=== PATIENT | female | born 1945 | race African-American/Black ===

== ENCOUNTER 2016-11-20 07:14 | Day surgery (SDC) | payer OTHER, MEDICAID ==
[2016-11-20] MEDS ORDERED: NS 500 ML IV 500 ML IV ONE (07:56)
[2016-11-20] MEDS ORDERED: KENALOG INJ 40 MG ONE (08:13)
[2016-11-20] MEDS ORDERED: TETRACAINE HCL AFFEYE ONE (10:19)
[2016-11-20] MEDS ORDERED: ALPHAGAN-P OPHTH 1 DOSE AFFEYE ONE (10:19)
[2016-11-20] MEDS ORDERED: BETADINE OPHTH SOLN 5% EACHEYE ONE (10:19)
[2016-11-20] MEDS ORDERED: VIGAMOX 0.5% OPHTH 1 DOSE AFFEYE ONE (10:32)
[2016-11-20 12:53] VITALS: BP 144/73
== END 2016-11-20 10:58 | disposition home or self-care (01) | DRG 125 ==
LOC: SURG1 07:14
PROVIDERS: ATTEND Ophthalmology
PROC: 08BSXZX Excision of Right Conjunctiva, External Approach, Diagnostic (ICD-10-PCS; principal; 2016-11-20 10:30)
PROC: 08U007Z Supplement of Right Eye with Autologous Tissue Substitute, Open Approach (ICD-10-PCS; principal; 2016-11-20 10:30)
DX: H11.001 Unspecified pterygium of right eye (principal)
CPT/HCPCS: 99100; A4217; J3301

== ENCOUNTER 2017-02-12 09:01 | Day surgery (SDC) | payer OTHER, MEDICAID ==
[2017-02-12] MEDS ORDERED: TETRACAINE 0.5% OPHTH 1 DOSE AFFEYE ONE ×4 (09:10→13:09)
[2017-02-12] MEDS ORDERED: VIGAMOX 0.5% OPHTH 1 DOSE AFFEYE ONE ×5 (09:11→13:19)
[2017-02-12] MEDS ORDERED: NS 500 ML IV 500 ML IV ONE (09:21)
[2017-02-12] MEDS ORDERED: PROLENSA OPHTH 1 DOSE AFFEYE ONE (09:22)
[2017-02-12] MEDS ORDERED: ALPHAGAN-P OPHTH 1 DOSE AFFEYE ONE (09:24)
[2017-02-12] MEDS ORDERED: MYDRIACIL OPHTH 1 DOSE AFFEYE ONE ×4 (09:25→09:35)
[2017-02-12] MEDS ORDERED: CYCLOGYL 1% OPHTH 1 DOSE OP ONE ×4 (09:25→09:35)
[2017-02-12] MEDS ORDERED: AK-DILATE 2.5% OPHTH 1 DOSE OP ONE ×4 (09:25→09:35)
[2017-02-12] MEDS ORDERED: BETADINE OPHTH SOLN 5% EACHEYE ONE (12:58)
[2017-02-12] MEDS ORDERED: BSS OPHTH (PLAIN) 500 ML with VANCOMYCIN HCL 500 MG VIAL 25 MG, ADRENALINE CHL INJ 1 MG IR ONE ×6 (13:00)
[2017-02-12] MEDS ORDERED: ADRENALINE CHL INJ IJ ONE ×2 (13:00→13:09)
[2017-02-12] MEDS ORDERED: DUOVISC IO ONE ×2 (13:00→13:09)
[2017-02-12] MEDS ORDERED: XYLOCAINE-MPF 1% IJ ONE ×2 (13:00→13:09)
[2017-02-12 13:31] VITALS: BP 119/69
== END 2017-02-12 13:31 | disposition home or self-care (01) ==
LOC: SURG1 09:01
PROVIDERS: ATTEND Ophthalmology
PROC: 08DK3ZZ Extraction of Left Lens, Percutaneous Approach (ICD-10-PCS; principal; 2017-02-12 16:15)
PROC: 08RK3JZ Replacement of Left Lens with Synthetic Substitute, Percutaneous Approach (ICD-10-PCS; principal; 2017-02-12 16:15)
DX: H25.12 Age-related nuclear cataract, left eye (principal); H25.012 Cortical age-related cataract, left eye
CPT/HCPCS: 99100; A4217; J0170; J3370

== ENCOUNTER 2017-02-19 07:22 | Day surgery (SDC) | payer OTHER, MEDICAID ==
[~2017-02-19 07:22] MED LIST: NS 500 ML IV 500 ML IV ONE; TETRACAINE 0.5% OPHTH 1 DOSE AFFEYE ONE; VIGAMOX 0.5% OPHTH 1 DOSE AFFEYE ONE
[2017-02-19] MEDS ORDERED: VIGAMOX 0.5% OPHTH 1 DOSE AFFEYE ONE ×3 (07:30→09:37)
[2017-02-19] MEDS ORDERED: PROLENSA OPHTH 1 DOSE AFFEYE ONE (07:32)
[2017-02-19] MEDS ORDERED: ALPHAGAN-P OPHTH 1 DOSE AFFEYE ONE (07:33)
[2017-02-19] MEDS ORDERED: CYCLOGYL 1% OPHTH 1 DOSE OP ONE ×3 (07:34→07:36)
[2017-02-19] MEDS ORDERED: MYDRIACIL OPHTH 1 DOSE AFFEYE ONE ×3 (07:34→07:36)
[2017-02-19] MEDS ORDERED: AK-DILATE 2.5% OPHTH 1 DOSE OP ONE ×3 (07:34→07:36)
[2017-02-19] MEDS ORDERED: TETRACAINE 0.5% OPHTH 1 DOSE AFFEYE ONE ×3 (09:10→09:21)
[2017-02-19] MEDS ORDERED: BETADINE OPHTH SOLN 5% EACHEYE ONE (09:10)
[2017-02-19] MEDS ORDERED: ADRENALINE CHL INJ IJ ONE ×2 (09:17→09:21)
[2017-02-19] MEDS ORDERED: XYLOCAINE-MPF 1% IJ ONE ×2 (09:17→09:21)
[2017-02-19] MEDS ORDERED: BSS OPHTH (PLAIN) 500 ML with VANCOMYCIN HCL 500 MG VIAL 25 MG, ADRENALINE CHL INJ 1 MG IR ONE ×6 (09:18)
[2017-02-19] MEDS ORDERED: DUOVISC IO ONE ×2 (09:18→09:21)
[2017-02-19 10:45] VITALS: BP 114/60
[2017-02-19] MEDS ORDERED: DIPRIVAN VIAL ONE (14:06)
== END 2017-02-19 10:05 | disposition home or self-care (01) ==
LOC: SURG1 07:22
PROVIDERS: ATTEND Ophthalmology
PROC: 08DJ3ZZ Extraction of Right Lens, Percutaneous Approach (ICD-10-PCS; principal; 2017-02-19 09:00)
PROC: 08RJ3JZ Replacement of Right Lens with Synthetic Substitute, Percutaneous Approach (ICD-10-PCS; principal; 2017-02-19 09:00)
DX: H25.11 Age-related nuclear cataract, right eye (principal); H25.011 Cortical age-related cataract, right eye
CPT/HCPCS: 99100; A4217; J0170; J3370; J3490